=== PATIENT | female | born 1945 ===

== ENCOUNTER 2025-06-30 08:45 | Inpatient (IN) | payer OTHER ==
[~2025-06-30] VITALS: Ht 157.5 cm; Wt 58.1 kg
[2025-07-01] MEDS ORDERED: COZAAR100 MG PO (08:15)
[2025-07-01] MEDS ORDERED: KAPSPARGO SPRI100 MG PO (08:16)
[2025-07-01] MEDS ORDERED: ASA81 MG PO (08:17)
[2025-07-01 08:20] VITALS: BP 143/70
[2025-07-01 08:36] LABS: BASO % 0.7 % (0.1-1.2); EOS # 0.04 (0.04-0.54); EOS % 0.9 % (0.7-7.0); LYMPH # 1.61 (1.18-3.74); LYMPH % 35.7 % (19.3-53.1); MEAN PLATELET VOLUME 11.10 fl (9.4-12.4); MONO # 0.32 (0.24-0.82); MONO % 7.1 % (4.7-12.5); NEUT # 2.51 (1.56-6.13); NEUT % 55.6 % (34.0-71.1); RED CELL DISTRIBUTION WIDTH 13.1 % (11.6-14.4)
[2025-07-01 08:56] LABS: INR 0.99
[2025-07-01 09:22] LABS: ALT/SGPT 15.0 U/L (12-78); AST/SGOT 24.0 U/L (15-37); BILIRUBIN TOTAL 0.71 mg/dL (0.3-1.2); BUN CREA RATIO 20.0 (7.0-25.0); CHOL HDL RATIO 1.8 (0-5.0); CREATININE SERUM 1.02 mg/dL (0.55-1.02); GFR 52.55; GLOBULINA 3.6 G/DL (2.4-3.5); GLUCOSE FASTING 108.0 mg/dL (65-100); HDL 95.0 mg/dl (40-60); LDL 59.0 mg/dl (0-130); OSMOLALITY SERUM 288.0 MOSM/KG (275-295); VLDL 15.0 (0-39)
[2025-07-01 09:51] LABS: URINE APPEARANCE Clear; URINE BILIRRUBIN Negative (NEGATIVE); URINE BLOOD Negative; URINE COLOR Yellow; URINE GLUCOSE Negative (NEGATIVE); URINE KETONE Trace (NEGATIVE); URINE LEUKOCYTE Trace; URINE NITRATE Negative; URINE PROTEIN Trace (NEGATIVE); URINE UROBILINOGEN 0.2 E.U./dl
[2025-07-01 09:53] LABS: URINE BACTERIA 3643.1 uL (0.0-1933); URINE EPITHELIAL CELLS 156.9 uL (0.0-38.8); URINE RBC 12.4 uL (0.0-20.8); URINE WBC 19.9 uL (0.0-23.2)
[2025-07-01 10:08] LABS: URINE CAST 0.58 uL (0.0-1.40)
[2025-07-01] MEDS ORDERED: NORVASC5 MG PO (12:55)
[2025-07-08] MEDS ORDERED: CEFAZOLIN SODIUM 1,000 MG VIAL ONE ×2 (09:21→16:03)
[2025-07-08] MEDS ORDERED: TRANEXAMIC ACID 100MG/1ML (1000MG) AMPUL ONE (09:22)
[2025-07-08] MEDS ORDERED: KETOROLAC TROMETHAMINE 60 MG VIAL IM ONE (10:57)
[2025-07-08] MEDS ORDERED: BUPIVACAINE HCL/MPF 0.5% 30ML VIAL ONE (10:57)
[2025-07-08] MEDS ORDERED: VANCOMYCIN HCL 1,000 MG VIAL ONE (10:57)
[2025-07-08] MEDS ORDERED: LIDOCAINE HCL 1%/EPINEPHRINE 20ML VIAL IJ ONE (10:57)
[2025-07-08] MEDS ORDERED: MORPHINE SULFATE 2 MG/ML SYRINGE IV ONE (12:30)
[2025-07-08] MEDS ORDERED: MORPHINE SULFATE 4 MG/ML VIAL IV PRN (12:30)
[2025-07-08] MEDS ORDERED: ONDANSETRON HCL 2 MG/ML VIAL IV PRN (12:30)
[2025-07-08] MEDS ORDERED: OxyCODONE HCL 5 MG TABLET (ROXICODONE) PO PRN (12:30)
[2025-07-08] MEDS ORDERED: SODIUM CHLORIDE 0.45 % 1,000 ML IV SCH (12:30)
[2025-07-08] MEDS ORDERED: GABAPENTIN 300 MG CAPSULE PO SCH (17:00)
[2025-07-08] MEDS ORDERED: CEFAZOLIN SODIUM 1,000 MG VIAL IV SCH (17:00)
[2025-07-08] MEDS ORDERED: ACETAMINOPHEN 500 MG GEL..CAP PO SCH (18:00)
[2025-07-08 20:35] VITALS: BP 132/80; O2SAT 96
[2025-07-09 00:45] VITALS: BP 119/70; O2SAT 97
[2025-07-09 06:49] LABS: BASO % 0.2 % (0.1-1.2); EOS # 0.04 (0.04-0.54); EOS % 0.5 % (0.7-7.0); LYMPH # 0.98 (1.18-3.74); LYMPH % 12.0 % (19.3-53.1); MEAN PLATELET VOLUME 10.90 fl (9.4-12.4); MONO # 0.59 (0.24-0.82); MONO % 7.2 % (4.7-12.5); NEUT # 6.54 (1.56-6.13); NEUT % 79.9 % (34.0-71.1); RED CELL DISTRIBUTION WIDTH 12.7 % (11.6-14.4)
[2025-07-09 08:00] VITALS: BP 133/73; O2SAT 94
[2025-07-09] MEDS ORDERED: PERCOCET 5-3251 EACH PO (08:15)
[2025-07-09] MEDS ORDERED: ELIQUIS2.5 MG PO (08:15)
[2025-07-09] MEDS ORDERED: DUI500 PO (08:15)
[2025-07-09] MEDS ORDERED: APIXABAN 2.5 MG TABLET PO SCH (09:00)
[2025-07-09] MEDS ORDERED: SENNOSIDES 1 TAB TABLET PO SCH (09:00)
[2025-07-09 14:37] LABS: COVID-19 AG NEGATIVE (NEGATIVE)
[2025-07-09 16:00] VITALS: BP 148/53; O2SAT 96
[2025-07-09] MEDS ORDERED: Cyanocobalamin/Mecobalamin 1 TAB.SL SL SCH (17:00)
[2025-07-09] MEDS ORDERED: SOD FERRIC GLUC COMPLX/SUCROSE 62.5 MG/5 ML AMPUL IV SCH (17:00)
[2025-07-10 01:07] VITALS: BP 130/64; O2SAT 96
[2025-07-10 07:03] LABS: BASO % 0.2 % (0.1-1.2); EOS # 0.05 (0.04-0.54); EOS % 0.5 % (0.7-7.0); LYMPH # 1.59 (1.18-3.74); LYMPH % 15.6 % (19.3-53.1); MEAN PLATELET VOLUME 11.30 fl (9.4-12.4); MONO # 0.87 (0.24-0.82); MONO % 8.5 % (4.7-12.5); NEUT # 7.63 (1.56-6.13); NEUT % 74.9 % (34.0-71.1); RED CELL DISTRIBUTION WIDTH 12.9 % (11.6-14.4)
[2025-07-10 07:56] VITALS: BP 143/67; O2SAT 95
[2025-07-10] MEDS ORDERED: IRON FUM,PS/FOLIC ACID/VITC/B3 1 CAP CAPSULE PO SCH (09:00)
[2025-07-10 17:15] VITALS: BP 158/68; O2SAT 96
== END 2025-07-10 19:15 | DRG 470 ==
LOC: ADM 08:45 → EDSTATUS 07-08 08:45 → CIR.AMB 07-08 08:45 → SURH 07-08 08:45 → O/R 07-08 09:00 → SURH 07-08 09:30
PROVIDERS: ADMIT Orthopaedic Surgery; ATTEND Orthopaedic Surgery
PROC: 0MNN0ZZ Release Right Knee Bursa and Ligament, Open Approach (ICD-10-PCS; 2025-07-08)
PROC: 0QUD0JZ Supplement Right Patella with Synthetic Substitute, Open Approach (ICD-10-PCS; 2025-07-08)
PROC: 0QUD0KZ Supplement Right Patella with Nonautologous Tissue Substitute, Open Approach (ICD-10-PCS; 2025-07-08)
PROC: 0SRC0JZ Replacement of Right Knee Joint with Synthetic Substitute, Open Approach (ICD-10-PCS; principal; 2025-07-08 09:30)
DX: M17.11 Unilateral primary osteoarthritis, right knee (principal); D62 Acute posthemorrhagic anemia; I10 Essential (primary) hypertension; E11.9 Type 2 diabetes mellitus without complications; E07.9 Disorder of thyroid, unspecified; Z96.651 Presence of right artificial knee joint; M22.11 Recurrent subluxation of patella, right knee; M81.0 Age-related osteoporosis without current pathological fracture